=== PATIENT | female | born 1930 | race Caucasian/White ===

== ENCOUNTER 2017-11-14 16:05 | Emergency (ER) | payer MEDICARE, BC ==
--- NOTE | 2017-11-14 16:16 | EDM.PDOC ---
ED HPI GENERAL MEDICAL PROBLEM - General Chief Complaint: Respiratory Problem Stated Complaint: PT SPOKE TO NURSE Time Seen by Provider: 11/14/17 16:11 Source of Information: Reports: Patient History Limitations: Reports: No Limitations - History of Present Illness INITIAL COMMENTS - FREE TEXT/NARRATIVE: HISTORY AND PHYSICAL: [] 87-year-old female presenting with concerns over coughing (for 1 hour)with her cranberry to tablet that she took today. History of Present Illness: []Patient relates that she has been up and down 5 times during the night, having to void she has some burning with urination She feels now, that she is here, she can swallow. coughing stopped on the way into town. Review of Systems: As per history of present illness and below otherwise all systems reviewed and negative. Past medical history: As per history of present illness and as reviewed below otherwise noncontributory. Surgical history: As per history of present illness and as reviewed below otherwise noncontributory. Social history: No reported history of drug or alcohol abuse. Family history: As per history of present illness and as reviewed below otherwise noncontributory. Physical exam: Alert and oriented. answering questions properly in full sentences, without shortness of breath. She is nontoxic in appearance. HEENT: Atraumatic, normocehpalic, pupils reactive, negative for conjunctival pallor or scleral icterus, mucous membranes moist, throat clear, neck supple, nontender, trachea midline. Lungs: Clear to auscultation, breath sounds equal bilaterally, chest non tender. Heart: S1S2, regular, negative for clicks, rubs, or JVD. Abdomen: Soft, nondistended, nontender. Negative for masses or hepatossplenmegaly. Negative for costovertebral tenderness. Pelvis: Stable nontender. Genitourinary: Deferred. Rectal: Deferred Extremities: Atraumatic, negative for cords or calf pain. Neurovascular unremarkable. Neuro: Awake, alert, oriented. Cranial nerves II through XII unremarkable. Cerebellum unremarkable. Motor and sensory unremarkable throughout. Exam nonfocal. She has swallowed water without any difficulty. Diagnostics: []UA Urine culture Soft tissue neck Therapeutics: [] Impression: []Coughing that has resolved due to foreign body #2 UTI Plan: []Discharge Macrobid tablet twice daily for the next 10 days Follow-up with your primary care provider this week Return to the emergency room as instructed and discussed Definitive disposition and diagnosis as appropriate pending reevaluation and review of above. Onset: Today, Sudden Duration: Hour(s):, Resolved Prior to Arrival Location: Reports: Neck Quality: Reports: Ache Severity: Moderate Improves with: Reports: None Worsens with: Reports: None - Related Data Allergies Allergy/AdvReac Type Severity Reaction Status Date / Time levofloxacin [From Levaquin] Allergy Itching Verified 11/14/17 16:13 Home Meds: Home Meds Aspirin [Children's Aspirin] 81 mg PO DAILY 05/21/14 [History] Diltiazem HCl [Diltiazem 24Hr ER] 120 mg PO DAILY 05/22/14 [History] Levothyroxine 75 mcg PO ACBRK 05/22/14 [History] ED ROS GENERAL - Review of Systems Review Of Systems: ROS reveals no pertinent complaints other than HPI. ED EXAM, GENERAL - Physical Exam Exam: See Below (see dictation) Course - Vital Signs Last Recorded V/S: Last Vital Signs Temp 35.9 C 11/14/17 16:14 Pulse 81 11/14/17 16:14 Resp 18 11/14/17 16:14 BP 156/76 H 11/14/17 16:14 Pulse Ox 94 L 11/14/17 16:14 - Orders/Labs/Meds Orders: Active Orders 24 hr Category Date Time Status Neck Soft Tissue [CR] Stat Exams 11/14/17 16:14 Taken CULTURE URINE [RM] Stat Lab 11/14/17 16:23 Ordered UA W/MICROSCOPIC [URIN] Stat Lab 11/14/17 16:23 Ordered Labs: Laboratory Tests 11/14/17 Range/Units 16:23 Urine Color YELLOW Urine Appearance CLEAR Urine pH 8.0 (5.0-8.0) Ur Specific [place] 1.015 (1.001-1.035) Urine Protein NEGATIVE (NEGATIVE) mg/dL Urine Glucose (UA) NEGATIVE (NEGATIVE) mg/dL Urine Ketones NEGATIVE (NEGATIVE) mg/dL Urine Occult Blood SMALL H (NEGATIVE) Urine Nitrite NEGATIVE (NEGATIVE) Urine Bilirubin NEGATIVE (NEGATIVE) Urine Urobilinogen 0.2 (<2.0) EU/dL Ur Leukocyte Esterase LARGE (NEGATIVE) Urine RBC 2-4 (0-2/HPF) Urine WBC 40-45 (0-5/HPF) Ur Epithelial Cells FEW (NONE-FEW) Urine Bacteria FEW (NEGATIVE) Departure - Departure Time of Disposition: 17:34 Disposition: Home, Self-Care 01 Condition: Good Clinical Impression: UTI, Urinary tract infectious disease Foreign body aspiration Qualifiers: Encounter type: initial encounter Qualified Code(s): T17.900A - Unspecified foreign body in respiratory tract, part unspecified causing asphyxiation, initial encounter - Discharge Information Instructions: Urinary Tract Infection, Adult, Choking, Adult Referrals: PCP,None [Primary Care Provider] - Forms: ED Department Discharge Additional Instructions: The following information is given to patients seen in the emergency department who are being discharged to home. This information is to outline your options for follow-up care. We provide all patients seen in our emergency department with a follow-up referral. The need for follow-up, as well as the timing and circumstances, are variable depending upon the specifics of your emergency department visit. If you don't have a primary care physician on staff, we will provide you with a referral. We always advise you to contact your personal physician following an emergency department visit to inform them of the circumstance of the visit and for follow-up with them and/or the need for any referrals to a consulting specialist. The emergency department will also refer you to a specialist when appropriate. This referral assures that you have the opportunity for followup care with a specialist. All of these measure are taken in an effort to provide you with optimal care, which includes your followup. Under all circumstances we always encourage you to contact your private physician who remains a resource for coordinating your care. When calling for followup care, please make the office aware that this follow-up is from your recent emergency room visit. If for any reason you are refused follow-up, please contact the [facility] emergency department at and asked to speak to the emergency department charge nurse. Your foreign body has not been visualized at this time Urinary tract infection will be treated with antibiotic therapy Macrobid 100 mg twice a day 10 days - My Orders Last 24 Hours: My Active Orders 11/14/17 16:14 Neck Soft Tissue [CR] Stat 11/14/17 16:23 CULTURE URINE [RM] Stat UA W/MICROSCOPIC [URIN] Stat - Assessment/Plan Last 24 Hours: My Active Orders 11/14/17 16:14 Neck Soft Tissue [CR] Stat 11/14/17 16:23 CULTURE URINE [RM] Stat UA W/MICROSCOPIC [URIN] Stat
[2017-11-14] MEDS ORDERED: Nitrofurantoin Monohydrate/Macrocrystalline 100 MG Cap PO ONE (17:41)
[2017-11-14 18:23] VITALS: BP 174/74
--- NOTE | 2017-11-15 16:20 | CR ---
EXAM DATE: 11/14/17 PATIENT'S AGE: 87 Patient: CARIE ABRAHAM Facility: [place], [place] Site . Site : [id number] Study: XRay ST Neck [id number]/24/2018 5:03:55 PM Ordering Physician: Doctor Carr Final Report: INDICATION: Choked on a cranberry pill. Coughing 1 hour after ingestion of pill. FINDINGS: Lateral soft tissue view of the neck was obtained. The epiglottis is unremarkable. There is no retropharyngeal soft tissue swelling. There are calcifications in the laryngeal cartilage. There is no definite radiopaque foreign body seen. Dictated by Reid Montana MD @ 11/14/2017 5:15:50 PM Dictated by: Reid Montana MD @ 11/14/2017 17:15:56 (Electronic Signature) Report Signed by Proxy. MARTA
== END 2017-11-14 18:24 | disposition home or self-care (01) ==
LOC: MW.ED 16:05
DX: T17.900A Unspecified foreign body in respiratory tract, part unspecified causing asphyxiation, initial encounter (principal); N39.0 Urinary tract infection, site not specified; Z79.899 Other long term (current) drug therapy; Z79.82 Long term (current) use of aspirin; X58.XXXA Exposure to other specified factors, initial encounter
CPT/HCPCS: 70360; 81001; 87086; 99283; A9270

== ENCOUNTER 2018-01-04 10:42 | Emergency (ER) | payer MEDICARE, BC ==
--- NOTE | 2018-01-04 11:18 | EDM.PDOC ---
ED HPI GENERAL MEDICAL PROBLEM - General Chief Complaint: Genitourinary Problem Stated Complaint: DIZZY Time Seen by Provider: 01/04/18 10:47 Source of Information: Reports: Patient History Limitations: Reports: No Limitations - History of Present Illness INITIAL COMMENTS - FREE TEXT/NARRATIVE: Yumi Camacho is an 87 y/o female presenting to the ER accompanied by her daughter. Per patient and daughter, she has been feeling dysuria and some mild pelvic pain. No nausea or vomiting. Endorses some loose stools. No blood. No sick contacts at home. She brought it a urine sample from home since she thinks it's a UTI. Denies any chest pain, dyspnea. No recent falls or trauma to head. - Related Data Allergies Allergy/AdvReac Type Severity Reaction Status Date / Time No Known Allergies Allergy Verified 01/04/18 10:56 Home Meds: Home Meds Aspirin [Children's Aspirin] 81 mg PO DAILY 05/21/14 [History] Levothyroxine 75 mcg PO ACBRK 05/22/14 [History] Furosemide [Lasix] 20 mg PO DAILY 01/04/18 [History] Levofloxacin [Levaquin] 250 mg PO DAILY 3 Days #3 tablet 01/04/18 [Rx] Phenazopyridine HCl [Pyridium] 200 mg PO TID 3 Days #9 tablet 01/04/18 [Rx] Past Medical History HEENT History: Reports: Impaired Vision Cardiovascular History: Reports: Hypertension Respiratory History: Reports: None Gastrointestinal History: Reports: None Genitourinary History: Reports: UTI, Recurrent 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: Reports: Musculoskeletal History: Reports: None Neurological History: Reports: None Psychiatric History: Reports: None Endocrine/Metabolic History: Reports: None Hematologic History: Reports: None Immunologic History: Reports: None Oncologic (Cancer) History: Reports: None Dermatologic History: Reports: None - Infectious Disease History Infectious Disease History: Reports: Chicken Pox, Mumps - Past Surgical History Head Surgeries/Procedures: Reports: None HEENT Surgical History: Reports: None Cardiovascular Surgical History: Reports: None Respiratory Surgical History: Reports: None GI Surgical History: Reports: Cholecystectomy Female Surgical History: Reports: None Endocrine Surgical History: Reports: None Neurological Surgical History: Reports: None Musculoskeletal Surgical History: Reports: None Oncologic Surgical History: Reports: None Dermatological Surgical History: Reports: None Social & Family History - Family History Family Medical History: Noncontributory - Tobacco Use Smoking Status *Q: Never Smoker Second Hand Smoke Exposure: No - Caffeine Use Caffeine Use: Reports: Coffee - Recreational Drug Use Recreational Drug Use: No ED ROS GENERAL - Review of Systems Review Of Systems: See Below Constitutional: Reports: No Symptoms HEENT: Reports: No Symptoms Respiratory: Reports: No Symptoms Cardiovascular: Reports: No Symptoms Endocrine: Reports: No Symptoms GI/Abdominal: Reports: Abdominal Pain. Denies: Bloody Stool, Diarrhea, Melena, Mucous in Stool, Nausea, Vomiting : Reports: Dysuria Musculoskeletal: Reports: No Symptoms Skin: Reports: No Symptoms Neurological: Reports: No Symptoms Psychiatric: Reports: No Symptoms Hematologic/Lymphatic: Reports: No Symptoms Immunologic: Reports: No Symptoms ED EXAM, GI/ABD - Physical Exam Exam: See Below Exam Limited By: No Limitations General Appearance: Alert, WD/WN, No Apparent Distress Throat/Mouth: Normal Inspection, Normal Lips, Normal Teeth, Normal Gums, Normal Oropharynx, Normal Voice, No Airway Compromise Head: Atraumatic, Normocephalic Respiratory/Chest: No Respiratory Distress, Lungs Clear, Normal Breath Sounds, No Accessory Muscle Use, Chest Non-Tender Cardiovascular: Normal Peripheral Pulses, Regular Rate, Rhythm, No Edema, No Gallop, No JVD, No Murmur, No Rub GI/Abdominal Exam: Normal Bowel Sounds, Soft, No Organomegaly, No Distention, No Abnormal Bruit, No Mass, Other (mild pelvic pain. No RLQ pain.) Extremities: Normal Inspection, Normal Range of Motion, Non-Tender, Normal Capillary Refill, No Pedal Edema Neurological: Alert, Oriented, CN II-XII Intact, Normal Cognition, Normal Gait, Normal Reflexes, No Motor/Sensory Deficits Psychiatric: Normal Affect, Normal Mood Skin Exam: Warm, Dry, Intact, Normal Color, No Rash Course - Vital Signs Last Recorded V/S: Last Vital Signs Temp 36.0 C 01/04/18 10:59 Pulse 72 01/04/18 10:59 Resp 14 01/04/18 10:59 BP 163/80 H 01/04/18 10:59 Pulse Ox 95 01/04/18 10:59 - Orders/Labs/Meds Orders: Active Orders 24 hr Category Date Time Status EKG Documentation Completion [RC] STAT Care 01/04/18 11:02 Active COMPREHENSIVE METABOLIC PN,CMP [CHEM] Stat Lab 01/04/18 11:13 Received CULTURE URINE [RM] Stat Lab 01/04/18 11:10 Received URINALYSIS W/MICROSCOPIC [UA W/MICROSCOPIC] [URIN] Stat Lab 01/04/18 11:10 Ordered Labs: Laboratory Tests 01/04/18 01/04/18 Range/Units 11:10 11:13 WBC 8.32 (4.0-11.0) K/uL RBC 4.29 L (4.30-5.90) M/uL Hgb 13.6 (12.0-16.0) g/dL Hct 41.4 (36.0-46.0) % MCV 96.5 (80.0-98.0) fL MCH 31.7 (27.0-32.0) pg MCHC 32.9 (31.0-37.0) g/dL RDW Std Deviation 49.4 (28.0-62.0) fl RDW Coeff of Chirag 14 (11.0-15.0) % Plt Count 192 (150-400) K/uL MPV 9.20 (7.40-12.00) fL Neut % (Auto) 66.2 (48.0-80.0) % Lymph % (Auto) 21.5 (16.0-40.0) % [place] % (Auto) 10.1 (0.0-15.0) % Eos % (Auto) 2.0 (0.0-7.0) % Baso % (Auto) 0.2 (0.0-1.5) % Neut # (Auto) 5.5 (1.4-5.7) K/uL Lymph # (Auto) 1.8 (0.6-2.4) K/uL [place] # (Auto) 0.8 (0.0-0.8) K/uL Eos # (Auto) 0.2 (0.0-0.7) K/uL Baso # (Auto) 0.0 (0.0-0.1) K/uL Nucleated RBC % 0.0 /100WBC Nucleated RBCs # 0 K/uL Urine Color YELLOW Urine Appearance CLOUDY Urine pH 6.0 (5.0-8.0) Ur Specific [place] 1.015 (1.001-1.035) Urine Protein NEGATIVE (NEGATIVE) mg/dL Urine Glucose (UA) NEGATIVE (NEGATIVE) mg/dL Urine Ketones NEGATIVE (NEGATIVE) mg/dL Urine Occult Blood MODERATE (NEGATIVE) Urine Nitrite NEGATIVE (NEGATIVE) Urine Bilirubin NEGATIVE (NEGATIVE) Urine Urobilinogen 0.2 (<2.0) EU/dL Ur Leukocyte Esterase LARGE (NEGATIVE) Urine RBC 8-11 (0-2/HPF) Urine WBC TO NUMEROUS TO COUNT H (0-5/HPF) Ur Epithelial Cells OCCASIONAL (NONE-FEW) Urine Bacteria 1+ H (NEGATIVE) Departure - Departure Time of Disposition: 11:50 Disposition: Home, Self-Care 01 Condition: Good Clinical Impression: UTI, Urinary tract infectious disease - Discharge Information *PRESCRIPTION DRUG MONITORING PROGRAM REVIEWED*: Not Applicable *COPY OF PRESCRIPTION DRUG MONITORING REPORT IN PATIENT EBONI: Not Applicable Prescriptions: Levofloxacin [Levaquin] 250 mg PO DAILY 3 Days #3 tablet Phenazopyridine HCl [Pyridium] 200 mg PO TID 3 Days #9 tablet Instructions: Antibiotic Medicine, Adult, Urinary Tract Infection, Adult, Easy- to-Read Referrals: José Nickerson MD [Primary Care Provider] - Forms: ED Department Discharge Additional Instructions: Take antibiotic daily for 3 days. Stay hydrated. Follow-up with primary care provider within 1 week if symptoms do not improve. - My Orders Last 24 Hours: My Active Orders 01/04/18 11:02 EKG Documentation Completion [RC] STAT 01/04/18 11:10 CULTURE URINE [RM] Stat URINALYSIS W/MICROSCOPIC [UA W/MICROSCOPIC] [URIN] Stat 01/04/18 11:13 COMPREHENSIVE METABOLIC PN,CMP [CHEM] Stat - Assessment/Plan Last 24 Hours: My Active Orders 01/04/18 11:02 EKG Documentation Completion [RC] STAT 01/04/18 11:10 CULTURE URINE [RM] Stat URINALYSIS W/MICROSCOPIC [UA W/MICROSCOPIC] [URIN] Stat 01/04/18 11:13 COMPREHENSIVE METABOLIC PN,CMP [CHEM] Stat
[2018-01-04 11:51] LABS: CHLORIDE,CL 106 mmol/L (98-107); SODIUM,NA 144 mmol/L (136-145)
[2018-01-04 17:39] VITALS: BP 158/72
== END 2018-01-04 12:11 | disposition home or self-care (01) ==
LOC: MW.ED 10:42
DX: N39.0 Urinary tract infection, site not specified (principal); I10 Essential (primary) hypertension; Z79.82 Long term (current) use of aspirin; Z79.899 Other long term (current) drug therapy
CPT/HCPCS: 36415; 80053; 81001; 85025; 87086; 87088; 87186; 99283